=== PATIENT | male | born 1965 | race Caucasian/White ===

== ENCOUNTER 2022-03-07 08:59 | Outpatient (CLI) | payer OTHER, SELFPAY ==
[2022-03-07 13:18] LABS: Chloride* 103 mmol/L (96-114)
[2022-03-07 13:19] LABS: Potassium* 5.4 mmol/L (3.6-5.1); Sodium* 140 mmol/L (135-149)
[2022-03-07 13:22] LABS: Alanine Aminotransferase* 47 U/L (4-50); Blood Urea Nitrogen* 14 mg/dL (7-30); Carbon Dioxide* 28 mmol/L (20-32); Cholesterol* 173 mg/dL (90-199); Creatinine* 0.8 mg/dL (0.5-1.5); Estimated Glomerular Filt Rate 104 ml/min; Glucose* 91 mg/dL (60-115)
[2022-03-07 13:23] LABS: Calcium* 9.2 mg/dL (8.4-10.6); HDL Cholesterol* 40 mg/dL (>=40); LDL Cholesterol Calculated 89 mg/dL (<100); Triglycerides* 221 mg/dL (40-149)
[2022-03-07 13:49] LABS: PSA Screen* 1.99 ng/mL (0.10-4.00)
== END 2022-03-07 09:00 | disposition home or self-care (01) ==
PROVIDERS: PCP Family Medicine; Visit Provider Family Medicine
DX: I10 Essential (primary) hypertension (principal); E78.5 Hyperlipidemia, unspecified; M10.9 Gout, unspecified; Z12.5 Encounter for screening for malignant neoplasm of prostate
CPT/HCPCS: 80048; 80061; 84153; 84460

== ENCOUNTER 2023-06-11 07:40 | Outpatient (CLI) | payer OTHER, SELFPAY | END 2023-06-11 07:41 | disposition home or self-care (01) | PROVIDERS: PCP Family Medicine; Visit Provider Family Medicine | DX: I10 Essential (primary) hypertension (principal); E78.2 Mixed hyperlipidemia; M10.9 Gout, unspecified; Z12.5 Encounter for screening for malignant neoplasm of prostate | CPT/HCPCS: 80048; 80061; 80076; 84550; G0103 ==

== ENCOUNTER 2024-07-16 08:42 | Outpatient (CLI) | payer OTHER, SELFPAY | END 2024-07-16 08:43 | disposition home or self-care (01) | PROVIDERS: PCP Family Medicine; Visit Provider Family Medicine | DX: E78.2 Mixed hyperlipidemia (principal); I10 Essential (primary) hypertension; M10.9 Gout, unspecified; R53.83 Other fatigue | CPT/HCPCS: 80048; 80061; 84443; 84460; 84550; 85025 ==

== ENCOUNTER 2024-08-17 08:37 | Outpatient (CLI) | payer OTHER, SELFPAY ==
--- NOTE | 2024-08-17 09:39 | P.ANES_ITS ---
Anesthesia Charges Start Date/Time Anesthesia Start Date: 08/17/24 Anesthesia Start Time: 09:17 Stop Date/Time Anesthesia Stop Date: 08/17/24 Anesthesia Stop Time: 09:38 Coding CPT Codes CPT Codes: ANES LWR INTST SCR COLSC - 19512 ([id number]) P3 - PATIENT W/SEVERE SYS DISEASE, QK - CASSEROLE PREPARER 2-4 CNCRNT ANES PROC, QX - SYSTEM ARCHITECT SVC W/ MD MED DIRECTION
--- NOTE | 2024-08-17 09:39 | W.ANESCHARGE ---
Anesthesia Charges Start Date/Time Anesthesia Start Date: 08/17/24 Anesthesia Start Time: 09:17 Stop Date/Time Anesthesia Stop Date: 08/17/24 Anesthesia Stop Time: 09:38 Coding CPT Codes CPT Codes: ANES LWR INTST SCR COLSC - [id number] ([id number]) P3 - PATIENT W/SEVERE SYS DISEASE, QK - [place]ETTE PERFORMER 2-4 CNCRNT ANES PROC, QX - FLAVOR MAKER SVC W/ MD MED DIRECTION
--- NOTE | 2024-08-17 11:21 | P.ANES_ITS ---
Anesthesia Charges Start Date/Time Anesthesia Start Date: 08/17/24 Anesthesia Start Time: 09:17 Stop Date/Time Anesthesia Stop Date: 08/17/24 Anesthesia Stop Time: 09:38 Coding CPT Codes CPT Codes: ANES LWR INTST SCR COLSC - [id number] ([id number]) QK - AGENT LICENSING CLERK 2-4 CNCRNT ANES PROC, QX - EQUIPMENT DETAILER SVC W/ MED DIRECTION, P3 - PATIENT W/SEVERE SYS DISEASE
--- NOTE | 2024-08-17 11:21 | W.ANESCHARGE ---
Anesthesia Charges Start Date/Time Anesthesia Start Date: 08/17/24 Anesthesia Start Time: 09:17 Stop Date/Time Anesthesia Stop Date: 08/17/24 Anesthesia Stop Time: 09:38 Coding CPT Codes CPT Codes: ANES LWR INTST SCR COLSC - [id number] ([id number]) QK - ENTRY LEVEL ADMINISTRATIVE ASSISTANT 2-4 CNCRNT ANES PROC, QX - INSTALLMENT ACCOUNT CHECKER SVC W/ MED DIRECTION, P3 - PATIENT W/SEVERE SYS DISEASE
== END 2024-08-17 08:38 | disposition home or self-care (01) ==
LOC: OP CLINIC 08:37
PROVIDERS: PCP Family Medicine; Visit Provider Surgery
DX: Z12.11 Encounter for screening for malignant neoplasm of colon (principal)
CPT/HCPCS: 00812; 45378; J2704

== ENCOUNTER 2025-01-27 10:41 | Outpatient (CLI) | payer OTHER, SELFPAY | END 2025-01-27 10:42 | disposition home or self-care (01) | LOC: NFLDREF 02-05 14:49 | PROVIDERS: PCP Family Medicine; Referring Provider Family Medicine; Visit Provider Family Medicine | DX: N40.0 Benign prostatic hyperplasia without lower urinary tract symptoms (principal) | CPT/HCPCS: G0103 ==